=== PATIENT | male | born 1990 | race Caucasian/White ===

== ENCOUNTER 2018-04-05 19:02 | Emergency (ER) | payer OTHER ==
[2018-04-05 19:10] VITALS: TEMP 98.6; BMI 31.1
--- NOTE | 2018-04-05 20:37 | PDOC ---
History of Present Illness - General Chief Complaint: Chest Pain Stated Complaint: PCP SENT/CHEST PAIN Time Seen by Provider: 04/05/18 20:06 - History of Present Illness Initial Comments: 04/05/18 21:08 The patient is a 27 year old male with no significant PMH who presents for evaluation of chest pain. The patient reports onset of achy left sided chest pain with some mild left arm numbness yesterday evening. He states that his symptoms have improved but he presented to an urgent care for his symptoms who referred him to the ED for further evaluation. The patient states that he is currently asymptomatic and otherwise denies fevers, chills, SOB, chest pain, nausea, vomiting, abdominal pain, recent long travel or surgery, history of DVT , or changes with urination or bowel movements. He denies a family history of heart disease as well. Past History - Past Medical History Allergies/Adverse Reactions: Allergies Allergy/AdvReac Type Severity Reaction Status Date / Time vancomycin Allergy Verified 04/05/18 19:09 - Suicide/Smoking/Psychosocial Hx Smoking History: Never smoked Hx Alcohol Use: Yes Substance Use Type: Alcohol Review of Systems - Review of Systems Comments:: 04/05/18 21:10 Constitutional: No fevers, chills, fatigue, malaise HEENT: No Rhinorrhea, nasal congestion, visual changes Cardiovascular: Chest pain. No syncope, palpitations, lightheadedness Respiratory: No Cough, SOB, Hemoptysis, Gastrointestinal: No Abdominal pain, Nausea, Vomiting, Constipation, Diarrhea, Melena Genitourinary: No Dysuria, Frequency, Urgency, Hesitancy, Hematuria, Flank pain Musculoskeletal: No Myalgia, arthralgia Skin: No rashes, itching, bruising, pallor Neurologic: No Headache, Dizziness, Weakness, or Tingling Psychiatric: No Hallucinations. No SI or HI *Physical Exam - Vital Signs Last Vital Signs Temp Pulse Resp BP Pulse Ox 98.6 F 67 16 137/82 97 04/05/18 19:04/05/18 19:04/05/18 19:04/05/18 19:04/05/18 19:09 - Physical Exam Comments: 04/05/18 21:10 General Appearance: Nourished. No Apparent Distress HEENT: No Pharyngeal Erythema, Tonsillar Exudate, Tonsillar Erythema Neck: No Cervical Lymphadenopathy Respiratory/Chest: Lungs Clear, Normal Breath Sounds. Reproducible tenderness to palpation along the left sternal border. No Crackles, Rales, Rhonchi, Wheezing Cardiovascular: Regular Rhythm, Regular Rate. No Murmur, Gallops, Rubs Gastrointestinal/Abdominal: Normal Bowel Sounds, Soft. No Guarding, Rebound, Tenderness Musculoskeletal: No CVA Tenderness Extremity: Normal Capillary Refill Integumentary: Normal Color, Dry, Warm Neurologic: Fully Oriented, Alert, Normal Mood/Affect, Normal Response, Heart Score/ECG Review - History History: Slightly suspicious - Electrocardiogram EKG: Non specific repolarization disturbance - Age Age: </= 45 - Risk Factors Based on the list above the patient has:: No risk factors known - Troponin Troponin: </= normal limit - Score Heart Score - Total: 1 #1 ECG reviewed & interpreted by me at: 21:11 General ECG Interpretation: Sinus Rhythm, Normal Rate, Normal Intervals, No acute ischemic changes 04/05/18 21:12 Q waves noted in leads III Nonspecific T wave findings in leads V1-V3 ED Treatment Course - LABORATORY CBC & Chemistry Diagram: 04/05/18 21:16 04/05/18 21:16 Medical Decision Making - Medical Decision Making 04/05/18 21:14 The patient is a 27 year old male with no significant PMH who presents for evaluation of chest pain. Differential includes but is not limited to: PE, ACS, Arrhythmia, Musculoskeletal, Infectious, Metabolic Derangement. Given the patient's history and physical exam, we will obtain a cbc, cmp, troponin, ekg, chest plain film to evaluate further. It is likely the patient's symptoms are musculoskeletal in nature. The patient does not have PE risk factors by [facility]. We will continue to monitor and reassess while here in the ED. 04/06/18 04:55 CBC, cmp, troponin and second troponin are unremarkable. Chest plain film is unremarkable. Repeat EKG demonstrates continued findings. We discussed the case with the hospitalist team who have evaluated the patient and believe he is safe for discharge. We will discharge the patient with close cardiology follow up and follow up in the resident clinic today. We discussed the results, plan, and strict return precautions with the patient who voiced understanding and is agreeable with the plan. *DC/Admit/Observation/Transfer Diagnosis at time of Disposition: Chest pain Qualifiers: Chest pain type: unspecified Qualified Code(s): R07.9 - Chest pain, unspecified - Discharge Dispostion Disposition: HOME Condition at time of disposition: Stable Decision to Admit order: No - Referrals Referrals: Vicente Cabrera MD [Staff Physician] - [facility] [place] [facility] [place] [Provider Group] - Patient Instructions Printed Discharge Instructions: DI for Chest Pain Additional Instructions: Please return to the ER if you experience concerning or worsening symptoms including worsening difficulty breathing, weakness, or chest pain. Your lab results were normal here in the ER. However you have some changes on your EKG. It is extremely important that you follow up in the clinic today. The number and address has been provided. You may walk in anytime between 8 am and 4:30pm. Please call to schedule a follow up appointment with our size tester within 1 days to discuss your ER visit and further management of your symptoms. - Post Discharge Activity
--- NOTE | 2018-04-05 21:16 | PDOC ---
Attending Attestation - Resident Resident Name: Koffi Amin - ED Attending Attestation I have performed the following: I have examined & evaluated the patient, The case was reviewed & discussed with the resident, I agree w/resident's findings & plan, Exceptions are as noted - HPI HPI: 04/05/18 21:36 The patient is a 27 year old male with no significant past medical history who presents to the ER with chest pain since this morning. Pt reports 2 episodes of LSCP today lasting 10-15 minutes at a time that feels like a "cramp." First episode occurred while he was waking up and having a stressful conversation. He reports the cramping resolves on its own. He reports at times he feels like the pain is radiating to his left arm. He had a second episode while he was at work. 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 This episode lasted for 10 minutes and also resolve on its own with no associated nausea, vomiting, diaphoresis, dizziness, headache, focal weakness or numbness. At the time he decided to present to urgent care due to his chest pain. While he was at urgent care he states an EKG was read as abnormal and he was advised to come to the emergency department. He denies any history of similar pain. He denies any family history of early cardiac disease. He denies any smoking or cocaine or other drug use. He denies any recent travel or immobility. Does not take any supplements. The patient relates his chest pain due to recent life stressors. The patient denies shortness of breath Denies fever, chills, coughing, nausea, vomit, diarrhea, and constipation. Denies dysuria, frequency, urgency, and hematuria. Allergies: NKA Past surgical history: None reported. Social history: No reported alcohol, drug, or cigarette use. - Physicial Exam PE: 04/05/18 21:41 GENERAL: Awake, alert, and fully oriented, in no acute distress HEAD: No signs of trauma EYES: PERRLA, EOMI, sclera anicteric, conjunctiva clear ENT: Auricles normal inspection, hearing grossly normal, nares patent, oropharynx clear without exudates. Moist mucosa NECK: Normal ROM, supple, no lymphadenopathy, JVD, or masses LUNGS: Breath sounds equal, clear to auscultation bilaterally. No wheezes, and no crackles HEART: Regular rate and rhythm, normal S1 and S2, no murmurs, rubs or gallops. + pinpoint L chest ttp ABDOMEN: Soft, nontender, normoactive bowel sounds. No guarding, no rebound. No masses EXTREMITIES: Normal range of motion, no edema. No clubbing or cyanosis. No cords, erythema, or tenderness NEUROLOGICAL: Normal speech, cranial nerves intact, negative pronator drift, 5/ 5 strength in all 4 extremities, normal sensation to light touch in all 4 extremities, normal cerebellar exam, normal gait, normal reflexes and tone SKIN: Warm, Dry, normal turgor, no rashes or lesions noted. - Medical Decision Making 04/05/18 21:41 27-year-old male with no significant past medical history presents with 2 episodes of chest pain. Vitals within normal limits. Exam with reproducible chest pain. EKG slightly concerning given biphasic T waves in V2 through V4. No previous EKG to compare. Patient's heart score is 2. Will check labs including 2 troponins 3 hours apart as well as chest x-ray and reassess. 04/06/18 01:31 Repeat EKG with pseudonormalization of T waves in V3-V4. Lead placement vs possible dynamic EKG changes 04/06/18 02:[address] Gamboa (adm hospitalist). Does not believe EKG changes are concerning and does not want to admit the pt for observation On re-evaluation, pt denies CP, feels better and wishes to go home. WE advised him to go to walk in clinic tomorrow for PCP f/u [facility] Pt advised to return to the ED immediately if he has any recurrent CP, or any new or concerning symptoms I discussed the physical exam findings, ancillary test results and final diagnoses with the patient. I answered all of the patient's questions. The patient was satisfied with the care received and felt comfortable with the discharge plan and treatment plan. The patient will call their primary care physician within 24 hours to arrange follow-up and will return to the Emergency Department with any new, persistent or worsening symptoms. Heart Score/ECG Review - History History: Slightly suspicious - Electrocardiogram EKG: Non specific repolarization disturbance - Age Age: </= 45 - Risk Factors Based on the list above the patient has:: 1-2 risk factors - Troponin Troponin: </= normal limit - Score Heart Score - Total: 2 #1 04/05/18 21:19 Twelve-lead EKG was performed and reviewed by me. Normal sinus rhythm, rate 78. Normal axis and intervals. No ST elevations. Biphasic T waves in V2 to V4.
[2018-04-05 21:36] LABS: BASO % 0.4 % (0-2.0); EOS % 0.6 % (0-4.5); HEMATOCRIT 42.8 % (35.4-49); HEMOGLOBIN 14.8 GM/dL (11.7-16.9); LYMPH % 34.2 % (8-40); MCH 31.8 pg (25.7-33.7); MCHC 34.7 g/dl (32.0-35.9); MEAN CELL VOLUME 91.7 fl (80-96); MEAN PLT VOLUME 8.8 fl (7.5-11.1); MONO % 6.8 % (3.8-10.2); PLATELET COUNT 250 K/MM3 (134-434); RBC 4.66 M/mm3 (4.00-5.60); RDW 13.1 % (11.9-15.9); WHITE BLOOD COUNT 10.6 K/mm3 (4.0-10.0)
[2018-04-05 21:56] LABS: ALBUMIN 4.7 g/dl (3.4-5.0); ALK PHOS 92 U/L (45-117); ANION GAP 10 MMOL/L (8-16); BILIRUBIN,TOTAL 0.7 mg/dL (0.2-1); BLOOD UREA NITROGEN 15 mg/dL (7-18); CALCIUM 9.5 mg/dL (8.5-10.1); CHLORIDE 104 mmol/L (98-107); CO2 26 mmol/L (21-32); CREATININE 0.9 mg/dL (0.55-1.3); GLUCOSE,RANDOM 100 mg/dL (74-106); POTASSIUM 3.5 mmol/L (3.5-5.1); SGOT/AST 41 U/L (15-37); SGPT/ALT 78 U/L (13-61); SODIUM 140 mmol/L (136-145); TOT PROT 8.4 g/dl (6.4-8.2)
[2018-04-05] MEDS ORDERED: SODIUM CHLORIDE 1,000 ML IV STA (22:06)
[2018-04-06 03:35] VITALS: BP 115/71; PULSE 56
--- NOTE | 2018-04-06 03:56 | PN ---
Teaching Attending Note Name of Resident: Vikram Gilbert ATTENDING PHYSICIAN STATEMENT I saw and evaluated the patient. 27yo man otherwise healthy c/o 15 min episode of left sided chest pain which started 04/05/18 am and prompted him to come to ER. No family history of cardiac disease. Physical exam unremarkable. EKG negative for acute ischemic changes, troponin x2. May have been costochondritis. Patient safe for discharge with PCP f/u.
--- NOTE | 2018-04-06 04:14 | HOSP ---
Subjective - Review of Symptoms Cardiovascular: Yes: Chest Pain Physical Examination Vital Signs: Vital Signs Temperature 98.6 F 04/06/18 03:30 Pulse Rate 56 L 04/06/18 03:30 Respiratory Rate 16 04/06/18 03:30 Blood Pressure 115/71 04/06/18 03:30 O2 Sat by Pulse Oximetry (%) 100 04/06/18 03:30 Constitutional: Yes: Well Nourished, No Distress Cardiovascular: Yes: Regular Rate and Rhythm, Other (slight L sided tenderness upon palpation). No: Tachycardia, Gallop, Murmur Respiratory: Yes: CTA Bilaterally. No: Rales, Rhonchi, Wheezes Gastrointestinal: Yes: Normal Bowel Sounds, Soft. No: Distention Edema: No Neurological: Yes: Alert, Oriented Labs: CBC, BMP 04/05/18 21:16 04/05/18 21:16 Hospitalist Encounter Assessment: Upon examining patient with attending, patient is not experiencing anymore chest discomfort and is not in any acute distress. Pain possibly costochondritis as it was reproducible upon palpation. Patient is no longer in pain. EKG changes are not especially concerning. Patient has an appointment on at 3;30 in the clinic for follow up post ER visit. Patient is stable to be discharged home with close follow up appointment pending for this . Patient is agreeable to be discharged home and to follow up in clinic. Visit type - Emergency Visit Emergency Visit: Yes Care time: The patient presented to the Emergency Department on the above date and was hospitalized for further evaluation of their emergent condition. - New Patient This patient is new to me today: Yes Date on this admission: 04/06/18 - Critical Care Critical Care patient: No
--- NOTE | 2018-04-06 08:05 | EKG ---
Test Reason : Blood Pressure : / mmHG Vent. Rate : 067 BPM Atrial Rate : 067 BPM P-R Int : 160 ms QRS Dur : 108 ms QT Int : 422 ms P-R-T Axes : 042 044 028 degrees QTc Int : 445 ms NORMAL SINUS RHYTHM POSSIBLE INFERIOR INFARCT , AGE UNDETERMINED ABNORMAL ECG WHEN COMPARED WITH ECG OF 05-APR-2018 19:10, NO SIGNIFICANT CHANGE WAS FOUND Confirmed by LG MAC MD ([id number]) on 04/06/2018 8:05:18 AM Referred By: Confirmed By:LG MAC MD
--- NOTE | 2018-04-06 08:07 | EKG ---
Test Reason : Blood Pressure : / mmHG Vent. Rate : 078 BPM Atrial Rate : 078 BPM P-R Int : 152 ms QRS Dur : 108 ms QT Int : 394 ms P-R-T Axes : 041 050 030 degrees QTc Int : 449 ms NORMAL SINUS RHYTHM NORMAL ECG NO PREVIOUS ECGS AVAILABLE Confirmed by LG MAC MD ([id number]) on 04/06/2018 8:06:41 AM Referred By: Confirmed By:LG MAC MD
== END 2018-04-06 05:09 | disposition home or self-care (01) ==
LOC: JER 19:02
PROC: 3E0337Z Introduction of Electrolytic and Water Balance Substance into Peripheral Vein, Percutaneous Approach (ICD-10-PCS; principal; 2018-04-05)
DX: R07.9 Chest pain, unspecified (principal)
CPT/HCPCS: 36415; 71046-TC-FY; 80053; 82550; 82553; 84484; 85025; 93005; 93010; 99282-25; J7030